=== PATIENT | female | born 1975 | race Caucasian/White ===

== ENCOUNTER 2018-03-08 05:20 | Inpatient (IN) | payer BC ==
[~2018-03-08] VITALS: Ht 167.6 cm; Wt 77.1 kg
[2018-03-08] MEDS ORDERED: [UNRECOGNIZED DRUG - OTHER] (07:32)
[2018-03-08] MEDS ORDERED: LORA10TA7 PO (07:32)
[2018-03-08] MEDS ORDERED: ROCURONIUM BROMIDE 10 MG/ML (ZEMURON) IV ONE (07:45)
[2018-03-08] MEDS ORDERED: MIDAZOLAM HCL 5 MG/5 ML VIAL IVP ONE (07:45)
[2018-03-08] MEDS ORDERED: BUPIVACAINE /PF 0.5% 30 ML VIAL INJ ONE (07:45)
[2018-03-08] MEDS ORDERED: LIDOCAINE 2%, 20 ML MDV INJ ONE (07:45)
[2018-03-08] MEDS ORDERED: fentaNYL CITRATE/PF 100 MCG/2 ML AMP IVP ONE (07:45)
[2018-03-08] MEDS ORDERED: GLYCOPYRROLATE 0.2 MG/ML VIAL IJ ONE (07:45)
[2018-03-08] MEDS ORDERED: NEOSTIGMINE METHYLSULFATE 1 MG/ML, 10 ML VIAL IVP ONE (07:45)
[2018-03-08] MEDS ORDERED: VASOPRESSIN 20 UNITS/ML VIAL IV ONE (07:45)
[2018-03-08] MEDS ORDERED: LR 1,000 ML IV.SOLN IV ONE (07:45)
[2018-03-08] MEDS ORDERED: SEVOFLURANE 15 MIN GAS INH ONE (07:45)
[2018-03-08] MEDS ORDERED: WATER FOR IRRIGATION,STERILE 1,000 ML IRRIG.SOLN IR ONE (07:45)
[2018-03-08] MEDS ORDERED: NS 100 ML BAG IV ONE (07:45)
[2018-03-08] MEDS ORDERED: CLINDAMYCIN PHOSPHATE 600 mg/50mL D5W IV ONE (07:45)
[2018-03-08] MEDS ORDERED: KETOROLAC TROMETHAMINE 30 MG VIAL IVP ONE (07:45)
[2018-03-08] MEDS ORDERED: PROPOFOL 200MG/ 20ML VIAL (DIPRIVAN) IV ONE (07:45)
[2018-03-08] MEDS ORDERED: fentaNYL CITRATE/PF 100 MCG/2 ML AMP IVP PRN ×2 (08:30)
[2018-03-08] MEDS ORDERED: KETOROLAC TROMETHAMINE 30 MG VIAL IVP PRN (08:30)
[2018-03-08] MEDS ORDERED: ONDANSETRON HCL 4 MG/2 ML VIAL IVP PRN ×2 (08:30→10:15)
[2018-03-08] MEDS ORDERED: OXYCODONE/ACETAMINOPHEN 5-325 TABLET PO PRN ×3 (10:15)
[2018-03-08] MEDS ORDERED: SIMETHICONE 80 MG TAB.CHEW PO PRN (10:15)
[2018-03-08 10:44] VITALS: BP_SYST 109
[2018-03-08] MEDS ORDERED: ONDANSETRON HCL 4 MG/2 ML VIAL ONE (11:36)
[2018-03-08] MEDS: LR 1,000 ML IV SCH ×2 (11:44→22:00)
[2018-03-08] MEDS ORDERED: PROMETHAZINE HCL 25 MG/ML AMP IM ONE (12:30)
[2018-03-08] MEDS ORDERED: PROMETHAZINE HCL 25 MG/ML AMP ONE (12:32)
[2018-03-08] MEDS ORDERED: ZOLPIDEM TARTRATE 5 MG TABLET PO PRN (21:00)
[2018-03-08] MEDS ORDERED: SENNOSIDES/DOCUSATE SODIUM 1 TAB TABLET(SENOKOT-S) PO PRN ×2 (21:00)
[2018-03-08] MEDS ORDERED: TEMAZEPAM 15 MG CAPSULE PO PRN (21:00)
[2018-03-09] MEDS: LR 1,000 ML IV SCH (05:54)
[2018-03-09 06:56] LABS: HEMOGLOBIN 7.2 g/dL (12.0-16.0)
[2018-03-09 07:24] LABS: HEMATOCRIT 21.5 % (36-48)
[2018-03-09] MEDS: IBUPROFEN 800 MG TABLET PO PRN ×2 (07:57→13:55)
== END 2018-03-09 14:15 | disposition home or self-care (01) | DRG 743 ==
LOC: SMU 05:20 → EDSTATUS 07:30 → SPU 12:58
PROVIDERS: ADMIT Obstetrics & Gynecology; ATTEND Obstetrics & Gynecology
PROC: 0UB90ZZ Excision of Uterus, Open Approach (ICD-10-PCS; principal; 2018-03-08 07:30)
DX: D25.9 Leiomyoma of uterus, unspecified (principal); N80.0 Endometriosis of uterus; E78.00 Pure hypercholesterolemia, unspecified; Z82.49 Family history of ischemic heart disease and other diseases of the circulatory system; Z83.3 Family history of diabetes mellitus; Z80.3 Family history of malignant neoplasm of breast; Z80.42 Family history of malignant neoplasm of prostate; Z80.6 Family history of leukemia; Z88.0 Allergy status to penicillin
CPT/HCPCS: 36415; 85018-TC; 86886; 86900; 86901; 87081; 88305; J1885; J2001; J2250; J2405; J2550; J2704; J2710; J3010; J3490; J7120